=== PATIENT | female | born 1975 | race Caucasian/White ===

== ENCOUNTER 2020-06-17 14:46 | Emergency (ER) | payer BC, SELFPAY ==
[2020-06-17 14:55] VITALS: BP 118/74; PULSE 88; RESP 18; TEMP 36.3; O2SAT 98
[2020-06-17 15:15] LABS: Hematocrit 40.2 % (37.0-47.0); Hemoglobin 13.6 g/dL (12.0-15.0); Mean Corpuscular HGB Conc 33.8 g/dl (32-36); Mean Corpuscular Hemoglobin 30.6 pg (26-34); Mean Corpuscular Volume 90.5 fl (80-100); Mean Platelet Volume 10.8 fl (7.4-10.4); Platelet Count Result 336 k/mm3 (150-375); Red Blood Count 4.44 M/mm3 (4.2-5.4); Red Cell Distribution Width 13.2 % (11.5-14.5); White Blood Count 16.1 K/mm3 (4.5-10.0)
[2020-06-17 15:26] LABS: Alanine Aminotransferase 30 U/L (4-35); Alkaline Phosphatase 94 U/L (38-126); Anion Gap 5 mmol/L (8-16); Aspartate Amino Transferase 45 U/L (14-36); Bilirubin,Total 0.6 mg/dL (0.2-1.3); Blood Urea Nitrogen 15 mg/dL (7-17); Calcium 8.6 mg/dL (8.4-10.2); Carbon Dioxide 27 mmol/L (22-30); Chloride 103 mmol/L (98-107); Estimated CRCL calculation 122 ml/min; Estimated Glomerular Filt Rate > 60; Glucose 140 mg/dL (65-105); Lipase 29 U/L (23-300); Potassium 3.7 mmol/L (3.4-5.0); Sodium 135 mmol/L (137-145)
[2020-06-17 15:40] LABS: Band Neutrophils Percent 2 % (0-6); Giant Platelets Present; Lymphocytes Absolute Manual 0.48 K/mm3 (1.1-4.5); Monocytes Absolute Manual 0.32 K/mm3 (0.1-0.90); Monocytes Percent Manual 2 % (3-9); Neutrophils Absolute Manual 15.29 K/mm3 (1.7-7.2); Neutrophils Percent Manual 93 % (46-73); Platelet Estimate Adequate (Adequate); Total Cells Counted 100
[2020-06-17 15:46] LABS: Add Urine Microscopic? YES; Appearance Urine Cloudy (Clear); Bacteria Urine Trace /hpf; Bilirubin Urine Negative (Negative); Blood Urine Negative (Negative); Color Urine Yellow (Yellow); Glucose Urine UA Negative (Negative); Ketones Urine Negative (Negative); Leukocyte Esterase Ur Negative LEU/UL (Negative); Mucus Urine Few /lpf; Nitrate Urine Negative (Negative); Protein Urine 1+ mg/dL (Negative); RBC Urine 0-2 /hpf (0-2); Specific Grav Ur 1.025 (1.001-1.035); Squamous Epithelial Cell Urine Occasional /hpf (Few); Urobilinogen Urine Negative mg/dL (<2.0); WBC Urine 0-3 /hpf
--- NOTE | 2020-06-17 15:52 | ED.NAVMDI ---
HPI - Nausea/Vomiting/Diarrhea General Chief complaint: Nausea/Vomiting/Diarrhea Stated complaint: V/D Time Seen by Provider: 06/17/20 14:57 Source: patient Mode of arrival: EMS Limitations: no limitations History of Present Illness HPI Narrative: 44-year-old with no major medical problems here with complaints of nausea, vomiting and diarrhea. Patient states that she ate cain and eggs last night woke up with nausea and vomiting. Patient states that she went to urgent care where she started having more episodes of nausea and vomiting associated with diarrhea. Patient states she had an accident at urgent care went home and called 911. She presently denies any fever or chills. Denies any blood in the stool. No Covid exposure. MD elicited complaint: nausea, vomiting and diarrhea Associated nausea: Yes Associated abdominal pain: Yes Location of pain: diffuse Quality: cramping Related Data Home Medications Medication Instructions Recorded Confirmed duloxetine [Cymbalta] mg PO 06/17/20 hydrochlorothiazide 12.5 mg PO DAILY 06/17/20 lisinopril 20 mg PO DAILY 06/17/20 montelukast [Singulair] 10 mg PO DAILY 06/17/20 Allergies Allergy/AdvReac Type Severity Reaction Status Date / Time clarithromycin Allergy Unknown Verified 06/17/20 15:04 Review of Systems Review of Systems: All systems reviewed & are unremarkable except as noted in HPI and below Constitutional: Constitutional: Reports no additional constitutional complaints Eyes: Eyes: Reports no additional eye complaints ENT: Reports system reviewed and no additional complaints, except as documented Cardiovascular: Cardiovascular: Reports no additional cardiovascular complaints Respiratory: Respiratory: Reports no additional respiratory complaints Gastrointestinal: Gastrointestinal: Reports as per HPI Musculoskeletal: Musculoskeletal: Reports no additional musculoskeletal complaints PMFSH Social History Social History Gender identity (if verbalized by the patient): Female Exam Narrative: Exam Narrative: GENERAL: Well-appearing, well-nourished, and in no acute distress. HEAD: Normocephalic, atraumatic. EYES: PERRLA and EOMI.. NECK: Supple. CHEST: Clear to auscultation. No respiratory distress. HEART: Regular rate and rhythm. No murmur heard. Normal peripheral pulses. ABDOMEN: Obese and soft, nontender, nondistended, normal active bowel sounds. EXTREMITIES: Normal range of motion. No edema. SKIN: Warm, dry, no rash. NEURO: No focal deficits. Alert and oriented x3. PSYCH: Normal mood and affect. Course Course Emergency Course: Patient after receiving 1 L of IV fluids , stated that she is feeling much better no further episodes of nausea or vomiting or diarrhea while here in the ER. I informed her about her lab work. Vital Signs Vital signs: Vital Signs Temperature 36.3 C L 06/17/20 14:55 Pulse Rate 88 06/17/20 14:55 Respiratory Rate 18 06/17/20 14:55 Blood Pressure 118/74 06/17/20 14:55 Pulse Oximetry 98 06/17/20 14:55 Temperature 36.3 C L 06/17/20 14:55 Pulse Rate 88 06/17/20 14:55 Respiratory Rate 18 06/17/20 14:55 Blood Pressure 118/74 06/17/20 14:55 Pulse Oximetry 98 06/17/20 14:55 MDM - Nausea/Vomiting/Diarrhea Lab Data Result diagrams: 06/17/20 15:08 06/17/20 15:08 Labs: Lab Results 06/17/20 06/17/20 06/17/20 Range/Units 15:08 15:08 15:27 WBC 16.1 H (4.5-10.0) K/mm3 RBC 4.44 (4.2-5.4) M/mm3 Hgb 13.6 (12.0-15.0) g/dL Hct 40.2 (37.0-47.0) % MCV 90.5 (80-100) fl MCH 30.6 (26-34) pg MCHC 33.8 (32-36) g/dl RDW 13.2 (11.5-14.5) % Plt Count 336 (150-375) k/mm3 MPV 10.8 H (7.4-10.4) fl Immature Gran % (Auto) Not Reportable Neut % (Auto) Not Reportable Lymph % (Auto) Not Reportable Shannon % (Auto) Not Reportable Eos % (Auto) Not Reportable
[2020-06-17 16:14] VITALS: BP 142/69; PULSE 91; RESP 14; O2SAT 98
--- NOTE | 2020-06-17 16:15 | PC.NURSE ---
1 L LR infused, 0 volume left in container. EMS initiated fluids.
== END 2020-06-17 16:23 | disposition home or self-care (01) ==
PROVIDERS: Emergency Provider Family Medicine
DX: K52.9 Noninfective gastroenteritis and colitis, unspecified (principal)
CPT/HCPCS: 36415; 51701; 80053; 81001; 83690; 85025; 99283